=== PATIENT | male | born 1980 | race Caucasian/White ===

== ENCOUNTER 2019-11-03 17:35 | Emergency (ER) | payer OTHER ==
[~2019-11-03] VITALS: Ht 182.9 cm; Wt 68.0 kg
[~2019-11-03 17:35] MED LIST: QUET100T PO
[2019-11-03] MEDS ORDERED: SODIUM CHLORIDE 0.9% 1,000 ML IV ONE (18:13)
[2019-11-03 18:30] LABS: CHLORIDE 101 mEq/L (98-107)
[2019-11-03 18:31] LABS: HEMATOCRIT. 48.4 % (42.0-52.0); HEMOGLOBIN. 16.7 g/dL (14.0-18.0); MEAN CORPUSCULAR HEMOGLOBIN 31.3 pg (28.0-32.0); MEAN PLATELET VOLUME 8.3 fl (7.4-10.4); PLATELET 260 x1000/uL (130-400); RED BLOOD CELL COUNT 5.32 mill/uL (4.7-6.1); RED CELL DISTRIBUTION WIDTH 15.3 % (11.6-14.6)
[2019-11-03 18:37] LABS: ETHANOL BLOOD < 10 mg/dL
[2019-11-03 19:04] LABS: PLATELET ESTIMATE NORMAL
[2019-11-03 19:53] LABS: BG BASE EXCESS 0.1 mmol/L (-2.0-2.0); BG CARBOXYHEMOGLOBIN 0.9 % (0.5-1.5); BG DEOXYHEMOGLOBIN 4.1 % (0.0-5.0); BG FRACTION INSPIRED OXYGEN 21; BG HCO3 ACT 24.7 mmol/L (22.0-26.0); BG METHEMOGLOBIN 0.7 % (0.0-1.5); BG OXYGEN SATURATION 95.8 % (92.0-98.5); BG OXYHEMOGLOBIN 94.3 % (94.0-97.0); BG PCO2 40.1 mmHg (35.0-45.0); BG PH 7.407 (7.350-7.450); BG PO2 83.5 mmHg (75.0-100.0); BG SAMPLE SITE RIGHT RADIAL; BG TOTAL HEMOGLOBIN 14.5 g/dL (12.0-18.0); BG VENT MODE ROOM AIR
[2019-11-03 22:54] VITALS: BP 110/62
== END 2019-11-03 23:06 | disposition short-term general hospital (02) ==
LOC: ER 17:35
DX: E87.0 Hyperosmolality and hypernatremia (principal); G93.49 Other encephalopathy; F15.10 Other stimulant abuse, uncomplicated; F10.20 Alcohol dependence, uncomplicated; F17.210 Nicotine dependence, cigarettes, uncomplicated; H02.402 Unspecified ptosis of left eyelid; Y90.0 Blood alcohol level of less than 20 mg/100 ml
CPT/HCPCS: 36415; 36600; 70450; 80053; 80320; 82375; 82805; 83930; 85025; 93005; 96360; 96361; 99285; J7030; G0480